=== PATIENT | female | born 2000 | race Caucasian/White ===

== ENCOUNTER 2019-07-10 19:29 | Emergency (ER) | payer OTHER ==
[~2019-07-10] VITALS: Ht 165.1 cm; Wt 72.6 kg
[2019-07-10 19:30] VITALS: BP 143/89
--- NOTE | 2019-07-10 19:30 | NUR ---
TO BED # 11 AMBULATORY
--- NOTE | 2019-07-10 19:55 | NUR ---
PT C/O DIFFUSE ABD PAIN X 1 WEEK. PT STATES N/V UNABLE TO HOLD DOWN WATER OR FOOD. PT STATES HES HAS BEEN TRYING TO EAT TACOS AND ENCHILADAS. PT APPEARS TO BE IN NO DISTRESS. SKIN IS PINK/WARM/DRY; AAOX4 WITH EVEN AND STEADY GAIT; LUNGS CLEAR BL; HR EVEN AND REGULAR; PT DENIES ANY FEVER, CP, SOB, OR COUGH AT THIS TIME; PATIENT STATES PAIN OF 8/10 AT THIS TIME; VSS; PATIENT POSITIONED FOR COMFORT; HOB ELEVATED; BEDRAILS UP X1; BED DOWN. ER MD MADE AWARE OF PT STATUS.
--- NOTE | 2019-07-10 21:47 | NUR ---
NO CHANGES FROM PREVIOUS ASSESSMENT. VSS. WAITING FOR DR. BAGLEY TO ASSESS PT.
[2019-07-10] MEDS ORDERED: NACL 0.9% 1,000 ML IV ONE (21:50)
[2019-07-10] MEDS ORDERED: KETOROLAC 30 MG/ML VIAL IVP ONE (21:50)
[2019-07-10 21:54] LABS: APPEARANCE,URINE CLEAR (CLEAR); BILIRUBIN,URINE 1+ (NEGATIVE); BLOOD, URINE NEGATIVE (NEGATIVE); COLOR,URINE YELLOW (YELLOW); LEUKOCYTE ESTERASE ,URINE NEGATIVE (NEGATIVE); NITRITE, URINE NEGATIVE (NEGATIVE); PH,URINE 6.5 (5.0-9.0); UGLUCOSE NEGATIVE (NEGATIVE)
[2019-07-10 22:01] LABS: HYALINE CASTS, URINE 0-10 /LPF (None Seen); RBC,URINE 0 /HPF (0-5); WBC,URINE 0-5 /HPF (0-5)
[2019-07-10 22:07] LABS: BASOPHILS % (AUTO) 0.2 % (0.0-2.0); EOSINOPHILS % (AUTO) 0.1 % (0.0-4.0); HEMATOCRIT 39.9 % (36-48); HEMOGLOBIN 13.3 g/dL (12.0-16.0); LYMPHOCYTES % (AUTO) 20.8 % (20.5-51.1); MEAN CORPUSCULAR HEMOGLOBIN 32 pg (27-31); MEAN CORPUSCULAR HGB CONC 33 g/dL (33-37); MEAN CORPUSCULAR VOLUME 97.2 fL (80-94); MONOCYTES # (AUTO) 0.6 K/uL (0.8-1.0); NEUTROPHILS # (AUTO) 6.9 K/uL (1.8-7.7); NEUTROPHILS % (AUTO) 72.9 % (42.2-75.2); PLATELET COUNT (AUTO) 327 K/uL (140-450); RED BLOOD CELL COUNT(AUTO) 4.11 MIL/uL (4.20-5.40); RED CELL DISTRIBUTION WIDTH 11.7 % (11.6-13.7); WHITE BLOOD COUNT (AUTO) 9.5 K/uL (4.5-11.0)
[2019-07-10 22:15] LABS: ANION GAP 18.4 (8-16); CARBON DIOXIDE 22.3 mmol/L (21-32); CREATININE 0.6 mg/dL (0.6-1.3); POTASSIUM 3.7 mmol/L (3.5-5.1)
[2019-07-10 22:22] LABS: ALBUMIN 4.4 g/dL (3.4-5.0); TOTAL BILIRUBIN 0.5 mg/dL (0.0-1.0)
[2019-07-10] MEDS ORDERED: ONDANSETRON 4 MG/2 ML VIAL IVP ONE (22:35)
--- NOTE | 2019-07-10 23:17 | NUR ---
UA shows pt is positive for . Dr. Marie made aware.
--- NOTE | 2019-07-10 23:45 | NUR ---
NO changes from previous assessment. Waiting for US to become availible. Will continue to montior.
--- NOTE | 2019-07-11 01:00 | NUR ---
US at bedside. Pt appears to be in no distress at this time. Will continue to monior. No changes from previous assessment.
--- NOTE | 2019-07-11 01:47 | NUR ---
Dr. BAGLEY D/C patient. Pt appears to be in no distress. VSSPatient discharged with v/s stable. Written and verbal after care instructions given and explained. Patient alert, oriented and verbalized understanding of instructions. Ambulatory with steady gait. All questions addressed prior to discharge. ID band removed. Patient advised to follow up with PMD. Rx of zofran given. Patient educated on indication of medication including possible reaction and side effects. Opportunity to ask questions provided and answered.
[2019-07-11 01:50] VITALS: BP 120/82
== END 2019-07-11 01:46 | disposition home or self-care (01) ==
LOC: MED 19:29
DX: O21.8 Other vomiting complicating pregnancy (principal); O26.891 Other specified pregnancy related conditions, first trimester; R10.30 Lower abdominal pain, unspecified; F12.10 Cannabis abuse, uncomplicated; Z3A.08 8 weeks gestation of pregnancy
CPT/HCPCS: 36415; 76801; 80053; 81001; 81025; 84702; 85025; 96361; 96374; 96375; 99284; J1885; J2405; J7030; Q0092

== ENCOUNTER 2020-11-28 09:00 | Emergency (ER) | payer OTHER ==
[~2020-11-28] VITALS: Ht 165.1 cm; Wt 74.8 kg
[2020-11-28 09:03] VITALS: BP 126/79
--- NOTE | 2020-11-28 09:13 | NUR ---
DR CHAO AT BEDSIDE EXAMINING PATIENT
--- NOTE | 2020-11-28 09:15 | NUR ---
20 Y/O FEMALE C/O ABDOMINAL PAIN THAT STARTED 0400 TODAY. PT HAD TELEHEALTH APPT WITH URGENT CARE AND WAS REFERRED HERE FOR FURTHER EVALUATION. PT C/O NAUSEA, DENIES VOMITING. 10/10 PRESSURE PAIN TENDER TO TOUCH. PMH:DENIES NKDA
[2020-11-28] MEDS ORDERED: KETOROLAC 30 MG/ML VIAL IM ONE (09:20)
[2020-11-28] MEDS ORDERED: DICYCLOMINE HCL LIQUID 20 MG, ALUMINUM HYD/MAG/SIMETHICONE 30 ML, LIDOCAINE VISCOUS 2% ... PO ONE ×3 (09:20)
[2020-11-28] MEDS ORDERED: DICYCLOMINE HCL LIQUID 10 MG/5 ML UDC ONE (09:32)
[2020-11-28] MEDS ORDERED: ALUMINUM HYD/MAG/SIMETHICONE 30 ML UDC ONE (09:32)
[2020-11-28] MEDS ORDERED: LIDOCAINE VISCOUS 2% 20 ML UDC ONE (09:32)
[2020-11-28 09:40] LABS: CARBON DIOXIDE 23.8 mmol/L (21-32); CREATININE 0.7 mg/dL (0.6-1.3); POTASSIUM 3.8 mmol/L (3.5-5.1)
[2020-11-28 09:42] LABS: BASOPHILS % (AUTO) 0.4 % (0.0-2.0); EOSINOPHILS % (AUTO) 0.4 % (0.0-4.0); HEMATOCRIT 39.7 % (36-48); HEMOGLOBIN 13.3 g/dL (12.0-16.0); LYMPHOCYTES # (AUTO) 1.5 K/uL (2.5-16.5); LYMPHOCYTES % (AUTO) 22.5 % (20.5-51.1); MEAN CORPUSCULAR HEMOGLOBIN 34 pg (27-31); MEAN CORPUSCULAR HGB CONC 34 g/dL (33-37); MEAN CORPUSCULAR VOLUME 100.4 fL (80-94); MONOCYTES # (AUTO) 0.5 K/uL (0.8-1.0); MONOCYTES % (AUTO) 6.9 % (1.7-9.3); NEUTROPHILS # (AUTO) 4.8 K/uL (1.8-7.7); NEUTROPHILS % (AUTO) 69.8 % (42.2-75.2); PLATELET COUNT (AUTO) 354 K/uL (140-450); RED BLOOD CELL COUNT(AUTO) 3.96 MIL/uL (4.20-5.40); RED CELL DISTRIBUTION WIDTH 12.9 % (11.6-13.7); WHITE BLOOD COUNT (AUTO) 6.9 K/uL (4.8-10.8)
[2020-11-28 09:47] LABS: ALBUMIN 4.3 g/dL (3.4-5.0); TOTAL BILIRUBIN 0.4 mg/dL (0.0-1.0)
[2020-11-28] MEDS ORDERED: KETOROLAC 30 MG/ML VIAL IVP ONE (09:50)
--- NOTE | 2020-11-28 10:01 | NUR ---
DR CHAO AT BEDSIDE PERFORMING ULTRASOUND
[2020-11-28] MEDS ORDERED: FAMO-90 PO (10:08)
[2020-11-28] MEDS ORDERED: MAG355OR2 PO (10:08)
[2020-11-28 10:16] VITALS: BP 126/79
--- NOTE | 2020-11-28 10:19 | NUR ---
Patient discharged with v/s stable. Written and verbal after care instructions given and explained. Patient alert, oriented and verbalized understanding of instructions. Ambulatory with steady gait. All questions addressed prior to discharge. ID band removed. Patient advised to follow up with PMD. Rx of PEPCID and MAALOX MAXIMUM STRENGTH SUSP given. Patient educated on indication of medication including possible reaction and side effects. Opportunity to ask questions provided and answered.
== END 2020-11-28 10:19 | disposition home or self-care (01) ==
LOC: MED 09:00
DX: R10.11 Right upper quadrant pain (principal); Z79.899 Other long term (current) drug therapy
CPT/HCPCS: 36415; 80053; 81002; 81025; 83690; 85025; 96374; 99284; J1885